=== PATIENT | female | born 1980 | race Caucasian/White ===

== ENCOUNTER 2018-04-24 18:41 | Emergency (ER) | payer OTHER ==
[~2018-04-24] VITALS: Ht 157.5 cm; Wt 110.7 kg
[~2018-04-24 18:41] MED LIST: ALPRAZOLAM0.5 MG PO; DOCUSATE SODIU100 MG PO; HUMALOG100 U/ML SC; HUMULIN 70/30 KW3 ML SC; HUMULIN N KW100 U/ML SC; HYDROXYZINE50 MG PO; IBUPROFEN800 MG PO; METFORMIN ER500 MG PO; MOTRIN 800MG T800 MG PO; PERCOCET 325 MG1 TA2 PO; PRENATAL1 TA2 PO; SYNTHROID0.025 MG PO; XANAX0.5 MG PO; ZOFRAN ODT4 MG SL
[2018-04-24 18:50] VITALS: BP 120/90
[2018-04-24] MEDS ORDERED: DOXYCYCLINE HY100 M4 PO (19:56)
--- NOTE | 2018-04-24 19:57 | ED GENERAL ADULT ---
History of Present Illness General Chief Complaint: General Adult Stated Complaint: PT RT ARM POSSIBLE CELLULITIS Source: patient Exam Limitations: no limitations Vital Signs & Intake/Output Vital Signs & Intake/Output Vital Signs Date Time Temp Pulse Resp B/P B/P Pulse O2 O2 Flow FiO2 Mean Ox Delivery Rate 04/24 1850 99.1 93 18 120/90 96 Allergies Coded Allergies: MDX - Cephalexin (From KEFLEX) (Intermediate, RASH 07/21/15) Uncoded Allergies: STERI STRIP ADHESIVE (Intermediate, RASH 07/21/15) Reconcile Medications Docusate Sodium 100 MG SGL 100 MG PO AT BEDTIME PRN STOOL SOFTENER Doxycycline Hyclate 100 MG TABLET 1 TAB PO BID cellulitis Hydroxyzine Hydrochloride (Hydroxyzine) 50 MG TAB 1 TAB PO Q8P PRN ITCHING Levothyroxine (Synthroid) 0.025 MG TAB 0.075 MG PO DAILY HYPOTHYROID ( Reported) OXYCODONE HCL/ACETAMINOPHEN (Percocet 5-325 MG Tablet) 325 MG/5 MG TAB 1 TAB PO Q4P PRN PAIN PNV95/FERROUS FUMARATE/FA ( Formula Tablet) 28 MG IRON-800 MCG TABLET 1 TAB PO DAILY SUPPLEMENT (Reported) Yibuprofen (Motrin 800MG Tab) 800 MG TAB 800 MG PO Q6P PRN PAIN SCALE 4-6 Triage Note: 37F UNDERGOING IVF TREATMENTS FOR CONCEPTION AND HAD IV PLACED TO RIGHT HAND THURSDAY. SINCE THEN PT REPORTS ASCENDING SWELLING AND PAIN UP ARM. NO NOTABLE ERYTHEMA OBSERVED, BUT APPROPRIATELY STAGED HEALING BRUISE TO DORSAL ASPECT OF HAND. PT REQUESTING THAT IF PLACED ON ANTIBIOTICS THEY BE " FRIENDLY" Triage Nurses Notes Reviewed? yes Onset: Gradual Duration: day(s): Timing: constant : No Patient currently breastfeeds: No HPI: 37-year-old female with a history of hypothyroidism, diabetes, and infertility presenting with right arm pain, swelling, and bruising status post IV placement 3 days ago. Patient is currently in her first IVF cycle and underwent a retrieval 3 days ago, had an IV placed to the dorsum of her right hand for the procedure, and has since had bruising to the back of her hand with pain and swelling of the right forearm. No fevers, nausea, or vomiting. Patient was prophylactically placed on doxycycline after the procedure. Was given 100 mg twice daily 5 days, and her last dose is scheduled for tomorrow morning. (Radha Najera) Past History Travel History Traveled to [place] past 21 day No Medical History Any Pertinent Medical History? 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 No (Radha Najera) Review of Systems Review of Systems Constitutional: Reports: no symptoms. EENTM: Reports: no symptoms. Respiratory: Reports: no symptoms. Cardiovascular: Reports: no symptoms. GI: Reports: no symptoms. Genitourinary: Reports: no symptoms. Musculoskeletal: Reports: see HPI. Skin: Reports: no symptoms. Neurological/Psychological: Reports: no symptoms. Hematologic/Endocrine: Reports: no symptoms. Immunologic/Allergic: Reports: no symptoms. All Other Systems: Reviewed and Negative (Radha Najear) Physical Exam Physical Exam General Appearance: well developed/nourished, no apparent distress, alert, awake , comfortable Head: atraumatic, normal appearance Eyes: Bilateral: normal appearance. Neck: normal inspection Respiratory: normal breath sounds, lungs clear Cardiovascular: regular rate/rhythm Gastrointestinal: soft, non-tender Back: normal inspection Extremities: on exam of the right upper extremity there is old healing ecchymosis to the dorsum of the hand, mild TTP to the forearm, no erythema or edema, mild area of induration to the distal forearm ~1 inch in size. The RUE is NV intact with 2+ radial pulse. Neurologic/Psych: awake, alert, oriented x 3, normal gait, normal mood/affect Skin: intact, warm/dry Core Measures ACS in differential dx? No CVA/TIA Diagnosis: No Sepsis Present: No Sepsis Focused Exam Completed? No (Radha Najera) Progress Differential Diagnoses I considered the following diagnoses in my evaluation of the patient: [ Neuropathy versus cellulitis versus thrombophlebitis versus DVT versus pseudoaneurysm] Plan of Care: Pt's exam is not concerning for significant cellulitis, but does have a small palpable area of induration. Will increase her doxy rx from 5 days to 7 days to fully cover for cellulitis. Pt is scheduled for embryo transfer susi, instructed to f/u with her infertility specialist regarding the increased duration in abx before proceeding with her scheduled procedure. Counseled on supportive care and strict return precautions. Initial ED EKG: none (Radha Najera) Departure Departure Disposition: HOME OR SELF CARE Condition: Stable Clinical Impression Primary Impression: Right arm pain Referrals: Patient Has No Primary Care Dr (PCP/Family) Additional Instructions: Take doxycycline as prescribed. Follow-up with both her primary care provider and your infertility doctor on Thursday for reevaluation. Return to the emergency department for any new or worsening symptoms. Departure Forms: Customer Survey General Discharge Information Prescriptions: Current Visit Scripts Doxycycline Hyclate 1 TAB PO BID #4 TAB (Radha Najera) PA/ENROLLMENT COUNSELOR Co-Sign Statement Statement: ED Attending supervision documentation- [] I saw and evaluated the patient. I have also reviewed all the pertinent lab results and diagnostic results. I agree with the findings and the plan of care as documented in the PA's/ENROLLMENT COUNSELOR's documentation. [X] I have reviewed the ED Record and agree with the PA's/ENROLLMENT COUNSELOR's documentation. [] Additions or exceptions (if any) to the PAs/ENROLLMENT COUNSELOR's note and plan are summarized below: [] (Cale Pro DO) Critical Care Note Critical Care Note Critical Care Time: non-applicable (Radha Najera)
== END 2018-04-24 20:12 ==
LOC: ERH 18:41
DX: M79.601 Pain in right arm (principal)

== ENCOUNTER → 2018-06-30 | Day surgery (SDC) | payer OTHER ==
--- NOTE | 2018-06-28 17:51 | History & Physical Pre-Op ---
General Information and HPI History of Present Illness: Patient is a 37-year-old 3 para 1 at 11 weeks gestation with known twin missed diagnosed by ultrasound last week. Patient is admitted today for suction D&C under ultrasound guidance. Allergies/Medications Allergies: Coded Allergies: MDX - Cephalexin (From KEFLEX) (Intermediate, RASH 07/21/15) Uncoded Allergies: STERI STRIP ADHESIVE (Intermediate, RASH 07/21/15) Home Med list Docusate Sodium 100 MG SGL 100 MG PO AT BEDTIME PRN STOOL SOFTENER Doxycycline Hyclate 100 MG TABLET 1 TAB PO BID cellulitis Hydroxyzine Hydrochloride (Hydroxyzine) 50 MG TAB 1 TAB PO Q8P PRN ITCHING Levothyroxine (Synthroid) 0.025 MG TAB 0.075 MG PO DAILY HYPOTHYROID ( Reported) OXYCODONE HCL/ACETAMINOPHEN (Percocet 5-325 MG Tablet) 325 MG/5 MG TAB 1 TAB PO Q4P PRN PAIN PNV95/FERROUS FUMARATE/FA ( Formula Tablet) 28 MG IRON-800 MCG TABLET 1 TAB PO DAILY SUPPLEMENT (Reported) Yibuprofen (Motrin 800MG Tab) 800 MG TAB 800 MG PO Q6P PRN PAIN SCALE 4-6 Past History Medical History Neurological: NONE EENT: NONE Cardiovascular: NONE Respiratory: NONE Gastrointestinal: NONE Hepatic: NONE Renal: NONE Musculoskeletal: NONE Psychiatric: NONE Endocrine: hypothyroidism, DM type 2 Blood Disorders: NONE Cancer(s): NONE 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 EENTM: Reports: no symptoms. Cardiovascular: Reports: no symptoms. Respiratory: Reports: no symptoms. GI: Reports: no symptoms. Genitourinary: Reports: no symptoms. Musculoskeletal: Reports: no symptoms. Skin: Reports: no symptoms. Neurological/Psychological: Reports: no symptoms. Hematologic/Endocrine: Reports: no symptoms. Immunologic/Allergic: Reports: no symptoms. All Other Systems: Reviewed and Negative Exam & Diagnostic Data Last 24 Hrs of Vital Signs/I&O Intake & Output 06/28 1600 06/28 0800 06/28 0000 Intake Total Output Total Balance Patient 239 lb Weight Physical Exam: HEENT: Normocephalic atraumatic Chest: Clear to auscultation bilaterally Cardiovascular: Normal S1 2 Abdomen: Obese nontender. Pelvic: Deferred extremities: No clubbing cyanosis Assessment/Plan Assessment/Plan: Missed Plan: Suction D&C As Ranked By This Provider Problem List: 1. Missed abortions
[~2018-06-30] VITALS: Ht 157.5 cm; Wt 108.4 kg
[~2018-06-30] MED LIST changes: +DOXYCYCLINE HY100 M4 PO
--- NOTE | 2018-06-30 15:17 | Operative Report ---
Operative/Inv Procedure Report Surgery Date: 06/30/18 Name of Procedure: Suction D&C Pre-Operative Diagnosis: Missed Post-Operative Diagnosis: Same Estimated Blood Loss: 50ml to 100ml Surgeon/Audio Visual Aide: Ortega Dickerson MD Anesthesia: moderate sedation Operative/Procedure Note Note: The patient was brought to the operating room placed on the OR table in dorsal supine position. She was given adequate anesthesia and repositioned in modified dorsolithotomy and prepped and draped in usual sterile fashion. Ultrasound was then brought in and scanned the patient throughout the procedure. A weighted speculum was inserted into the vagina with the help of a [place] retractor single -tooth tenaculum attached to the anterior lip of the cervix and retracted throughout the case. Cervix was injected with 1% lidocaine with epinephrine 20 cc in each quadrant. The cervix was serially dilated to accommodate a #8 curved suction curette this was placed into the uterus under visualization and activated. Multiple passes of the suction curette were needed for complete evacuation of the uterus. Sharp curettage followed removed revealing no remaining tissue. At the end of the case the instruments were removed hemostasis was verified the patient was then awakened and sent to recovery in good condition. All needle counts sponge, and instrument counts were correct and the procedure 2.
--- NOTE | 2018-07-01 07:23 | ULTRASOUND REPORT ---
EXAMINATION: Intraoperative ultrasound CLINICAL INFORMATION: Ultrasound requested for intraoperative D\T\C. COMPARISON: None. TECHNIQUE: Intraoperative ultrasound was provided for use by Dr. Dickerson. A total of 11 images were saved to PACS. A radiologist was not present during imaging. FINDINGS\E\IMPRESSION: Intraoperative ultrasound provided for use by Dr. Dickerson. Please see operative note for detailed findings.
== END ==
LOC: STS 00:41
DX: O02.1 Missed abortion (principal); E03.9 Hypothyroidism, unspecified; E11.9 Type 2 diabetes mellitus without complications; Z79.84 Long term (current) use of oral hypoglycemic drugs
CPT/HCPCS: 76998